=== PATIENT | female | born 2005 | race Caucasian/White ===

== ENCOUNTER 2024-02-11 17:11 | Emergency (ER) | payer OTHER, SELFPAY ==
[2024-02-11 17:15] VITALS: BP 111/73
[2024-02-11 17:54] LABS: HCG, Serum Qualitative Screen Negative
[2024-02-11 17:56] LABS: Hematocrit 36.9 % (37.0-47.0); Hemoglobin 13.2 g/dL (12.0-16.0); Mean Corp Hgb Conc. 35.8 g/dL (33.0-37.0); Mean Corpuscular Hgb 31.7 pg (27.0-31.0); Mean Corpuscular Volume 88.7 fL (81.0-99.0); Platelet Count 165 10^3/uL (130-400); Red Blood Cell Count 4.16 10^6/uL (4.20-5.40); Red Cell Dist. Width 12.1 % (11.5-14.5); White Blood Cell Count 3.8 10^3/uL (4.8-10.8)
[2024-02-11 17:58] LABS: ALT (SGPT) 21 U/L (0-35); AST (SGOT) 29 U/L (14-36); Albumin 4.5 g/dl (3.5-5.0); Alkaline Phosphatase 62 U/L (38-126); Blood Urea Nitrogen 16 mg/dl (7-17); Carbon Dioxide 27 mmol/L (22-30); Chloride 104 mmol/L (98-107); Glucose 90 mg/dl (70-99); Potassium 4.6 mmol/L (3.5-5.1); Sodium 141 mmol/L (135-145); Total Bilirubin 0.2 mg/dl (0.2-1.3); Total Protein 7.3 g/dl (6.3-8.2); eGFR > 60.00
[2024-02-11 18:08] LABS: Urine Albumin Negative (Neg - Trace); Urine Bilirubin Negative (Negative); Urine Character Clear (Clear); Urine Color Yellow; Urine Glucose Negative (Negative); Urine Ketone Negative (Negative); Urine Leukocyte Negative (Negative); Urine Nitrite Negative (Negative); Urine Occult Blood Negative (Negative); Urine Urobilinogen Negative (Neg - 1+)
[2024-02-11 19:35] LABS: Absolute Neutrophils -Man Diff 2.5 10^3/uL (1.4-6.5); Atypical Lymphocytes 4 %; Band Neutrophils 3 % (0-3); Eosinophils 3 % (0-6); Lymphocytes 20 % (20-51); Monocytes 6 % (2-9); Segmented Neutrophils 64 % (42-75)
[2024-02-11 19:36] LABS: Normal RBC Morphology Yes; Platelets Checked Yes; Total Cells Counted 100
--- NOTE | 2024-02-11 20:53 | ED.GENMED ---
History of Present Illness
General
Chief Complaint: Cold/Flu/URI Symptoms
Source: patient
Exam Limitations: none
Time Seen by Provider: 02/11/24 20:10
History of Present Illness
History of Present Illness:
This is a 18 year old female that comes in with c/o just not feeling well. States that she has been sick since Tuesday. States that she has been to two other hospitals and had a full work up. Sates that she started with some swelling in her feet and
a rash. States that this started yesterday. Denies any fever, chills, chest pain, SOB, abd pain, nausea, vomiting, diarrhea, headache, dizziness, urinary burning.
Past History
Past History
ED Past Medical History: GERD and Other (Ovarian cyst)
ED Past Surgical History: None
Social History
Tobacco: Vaping
Alcohol: None
Personal: Single
Living: with family
Employment: Employed
Review of Systems
Review of Systems
All Other Systems: ROS reviewed and negative except as documented in HPI and ROS
Constitutional: Reports no symptoms; Denies fever or chills
EENT: Reports no symptoms
Respiratory: Reports no symptoms; Denies cough or trouble breathing
Cardiac: Reports no symptoms; Denies chest pain
ABD/GI: Reports no symptoms; Denies abdominal pain, nausea, vomiting or diarrhea
: Reports no symptoms; Denies dysuria, frequency or urgency
Musculoskeletal: Reports other (feet swelling)
Skin: Reports other (rash on the bottom of her feet)
Neurological: Reports no symptoms; Denies dizzy or headache
Psychiatric: Reports no symptoms
Phy Exam
General Physical Exam
General Presentation: well appearing and no apparent distress
General age: appears stated age
General Skin: warm and dry
General Habitus: normal
General Mental: alert
General Hydration: appears well hydrated
ENT Exam
ENT Exam: TM's normal, pharynx normal and neck supple
Eye Exam
Eye Exam: EOMI
Cardiovascular Exam
Cardiovascular Exam: regular rate/rhythm, no edema, no murmur and normal peripheral pulses
Pulmonary Exam
Pulmonary Exam: lungs clear, no respiratory distress, no rales, chest non tender, no crackles, no rhonchi, no wheezing and no cough
Gastrointestinal Exam
Gastrointestinal Exam: normal bowel sounds, non tender, soft, no organomegaly, no pulsatile mass and non distended
Musculoskeletal Exam
Musculoskeletal Exam: full ROM and no edema
Skin Exam
Skin Exam: normal color, warm/dry, no rash (when looked at patient's feet she says that the rash is now gone. ) and no petechia
Psychiatric Exam
Psychiatric Exam: normal mood/affect
Course
Orders/Labs/Results
Orders:
Orders
02/11/24 17:20
Test Result ONCE
02/11/24 17:34
CBC/With Diff [Complete Blood Count/With Diff] Urgent
Comprehensive Metabolic Panel Urgent
HCG, Serum Qualitative Screen Urgent
Manual Differential Urgent
Urinalysis Reflex To Culture Urgent
Date Specimen was Collected: 02/11/24
Time Specimen was Collected: 17:23
02/11/24 18:46
Diphenhydramine [Benadryl] 50 mg IV NOW STA
Abnormal Lab Results
02/11/24
17:34
WBC 3.8 L 10^3/uL
(4.8-10.8)
RBC 4.16 L 10^6/uL
(4.20-5.40)
Hct 36.9 L %
(37.0-47.0)
MCH 31.7 H pg
(27.0-31.0)
02/11/24 17:34
02/11/24 17:34
Leukopenia, otherwise normal labs. HCG negative. Urine negative for infection.
Vital Signs
Initial and Last Documented VS:
Initial Vital Signs
Temp Pulse Resp BP Pulse Ox
98.2 F 104 16 111/73 98
02/11/24 17:15 02/11/24 17:15 02/11/24 17:15 02/11/24 17:15 02/11/24 17:15
Last Documented Vital Signs
Temp Pulse Resp BP Pulse Ox
98.2 F 104 16 111/73 98
02/11/24 17:15 02/11/24 17:15 02/11/24 17:15 02/11/24 17:15 02/11/24 17:15
MDM/Problems Addressed
Differential Diagnosis Includes:
Viral syndrome
MDM/Problems Addressed:
This is a 18 year old female that comes in with c/o not feeling well since Tuesday. Patient as been seen at 2 other hospitals and had a work up. States that yesterday she started with swelling of her feet and there was a rash.
Explained to patient that her WBC are slightly low. This can also happen with a viral illness. There is no rash or swelling noted at this time. Explained that this is most likely a viral illness and she can use Tylenol or Ibuprofen as needed. Follow
up with the Family doctor. Return with any concerns.
Chronic conditions affecting care:
NA
Acute Exacerbation and/or Progression of Chronic Illness:
NA
*Pulse Oximetry
Patient hypoxic: no
*EKG
Interpreted by ED Provider?: NA
Rate: EKG- N/A
*[employer] Operator Interpretation
Rate: [employer] [place] [employer] Operator- N/A
*Critical Care Note
Total Time (30-74mins, 75-104mins- exclusive of procedures): Not Applicable
ED Attending Note
-
Portions of this chart may have been created with voice recognition software.� Occasional wrong word or��sound alike� substitutions may have occurred due to the inherent limitations of voice recognition software.
Discharge Plan
Departure
Patient Disposition: Home (Routine Discharge)
Date of Disposition: 02/11/24
Time of Disposition: 21:00
Patient with high blood pressure during this ER visit?: No
Condition: Good
Covid-19: Not Applicable
Discharge Problem:
Acute viral syndrome
Instructions: Viral Syndrome (DC)
Referrals:
Giuliana Garza, DO [Family Provider] - Follow up in 2-3 days
Activity Restrictions/Additional Instructions:
As discussed, your blood work shows that your white blood cell count is slightly low. This can happen with a viral illness. Otherwise your labs are normal. You have had 2 other work ups at other hospitals. This is most likely a viral illness and
will just take time. Follow up with the family doctor for recheck. Please increase your water intake to 8-8oz glasses daily. Tylenol or Ibuprofen for body aches. IF YOU HAVE ANY OTHER CONCERNS PLEASE RETURN TO THE EMERGENCY ROOM
Interventions
Interventions:
*Risk Screen - Suicide Last Done: 02/11/24 17:15
*General Assessment Last Done: 02/11/24 17:15
*Neglect/Abuse Screening Last Done: 02/11/24 17:15
Discharge Date and Time
Print Language: CENTRAL AFRICAN
[2024-02-11 21:20] VITALS: BP 100/78
== END 2024-02-11 21:10 | disposition home or self-care (01) ==
LOC: EMR 17:11
PROVIDERS: Emergency Medicine; EMERGENCY PHYSICIAN Student in an Organized Health Care Education/Training Program; FAMILY PHYSICIAN Internal Medicine
DX: B34.9 Viral infection, unspecified (principal); R21 Rash and other nonspecific skin eruption; M79.89 Other specified soft tissue disorders; K21.9 Gastro-esophageal reflux disease without esophagitis; F17.290 Nicotine dependence, other tobacco product, uncomplicated
CPT/HCPCS: 99283; 80053; 81003; 84703; 85025